=== PATIENT | female | born 1985 | race Caucasian/White ===

== ENCOUNTER 2019-10-24 18:17 | Emergency (ER) | payer SELFPAY ==
[2019-10-24 18:50] VITALS: RESP 20; TEMP 36.3; BMI 23.6
--- NOTE | 2019-10-24 20:16 | W.ED.EXTPRO ---
Documented by User: SHABNAM Melgar 10/25/19 14:01 HPI - Extremity Problem General: Chief complaint: Extremity Injury, Upper Stated complaint: FINGER LAC Time Seen by Provider: 10/24/19 20:16 History of Present Illness: HPI Narrative: Patient is a 33-year-old female who comes into the ED with a laceration on her hand. Patient states she was carrying stuff tripped and fell and her hands got cut on glass. Denies any head trauma or loss of consciousness. Patient states she had her tetanus shot last year. Patient has a superficial linear lack on the thenar region of the left thumb and an abrasion on her right ring finger. Patient was wearing a ring on her right ring finger. Associated symptoms: Deny chest pain, fever(s) or rash Review of Systems Const: Denies: fever, chills or fatigue Eyes: Denies: change in vision or eye discomfort ENMT: Denies: throat pain, painful swallowing, nasal discharge or nasal congestion Card: Denies: chest pain, palpitations, edema, swelling of feet/ankles, shortness of breath on exertion or shortness of breath when lying down Resp: Denies: shortness of breath, productive cough or non-productive cough GI: Denies: abdominal pain, nausea, vomiting, diarrhea, constipation or blood in stool : Denies: flank pain, painful urination or blood in urine Musc: Reports: extremity pain (Right ring finger) and extremity swelling (right ring finger); Denies: neck pain or back pain Skin/Breast: Reports: new lesion; Denies: rash Neuro: Denies: headache, numbness in extremities or weakness in extremities PFS ED PFSH: Social History Smoking and tobacco status: current every day smoker Physical Exam Narrative: EXAM NARRATIVE: Patient is a 33-year-old female that is sitting on the exam chair when entered the room. She is showing no signs of acute distress or pain. She is unable to ring off of her right ring finger. There appears to be abrasion around right ring finger underneath the ring. The right ring finger is mildly swollen. Const: COMMON NORMALS: oriented x3 HENMT: COMMON NORMALS: normocephalic HEAD & SCALP: normocephalic MOUTH: oral and palatal mucosa normal THROAT: posterior oropharynx normal and uvula midline Neck/C-Spine: COMMON NORMALS: supple GENERAL: Yes normal visual inspection Resp: COMMON NORMALS: normal respiratory effort, no retractions, no use of accessory muscles and clear to auscultation bilaterally AUSCULTATION: clear to auscultation bilaterally Cardio: COMMON NORMALS: regular rate, regular rhythm, S1 normal heart sound, S2 normal heart sound, no gallops, no clicks, no murmurs and peripheral pulses 2+ throughout RATE: regular rate RHYTHM: regular rhythm HEART SOUNDS: S1 normal and S2 normal PERIPHERAL PULSES: pulses 2+ throughout GI: COMMON NORMALS: normal to inspection, nondistended, normoactive bowel sounds, soft to palpation, non-tender and no masses PALPATION: Yes soft : COMMON NORMALS: Yes no CVA tenderness BLADDER/KIDNEY EXAM: Yes no CVA tenderness Back/Pelvis: COMMON NORMALS: no CVA tenderness Extremity: NARRATIVE EXTREMITY EXAM: Patient had full range of motion and movement in right hand and left hand. All fingers were able to move normally without any pain. The the only pain she experienced is me touching the abrasion area or the ring rubbing against the abrasion area. RIGHT UPPER EXTREMITY: Yes hand & digits (Right ring finger had an abrasion on it.) Right hand and digits: Yes inspection (Some swelling and an abrasion on the right ring finger.), Yes palpation (Tender over abrasion area), Yes ROM exam (normal), Yes neurovascular exam (intact) and Yes tendon exam (Intact) LEFT UPPER EXTREMITY: Yes hand & digits (Small linear superficial laceration on the thenar region of the left thumb.) Left hand and digits: Yes inspection Neuro: COMMON NORMALS: oriented x3 and moves all extremities Skin: TRAUMA: abrasion (superficial abrasion on right ring finger.) and laceration (superficial lac on left thenar region of thumb-2.5cm) linear, superficial, motor nerve function intact and sensation intact; not contaminated, does not involve subcutaneous tissue and does not involve muscle tissue Procedures Laceration Laceration 1: Site: upper extremity (Thenar region) Side (If applicable): left Size (cm): 2.5 Description: linear Depth: simple, single layer Pre-repair: irrigated extensively (with tap water and then cleaned with CHG) Size (cm): other (Dermabond used to close wound) Nerve Block Nerve Block 1: Local Anesthetic: lidocaine 1% and with epi Amount of anesthesia used (mL): 20 Side: right Nerve Blocks: digital Procedure Successful: Yes Patient Tolerated Procedure: well Complications: none Additional Comments: Patient had a ring on her right ring finger. The cut and abrasion was on her right ring finger and underneath her ring. She was unable to get the ring off due to some of the pain and swelling on the ring finger. Vaseline was used to pull the ring off as well. It was too painful so I decided to do a digital block and cut the ring off. Patient agreed with performing a digital block to help with pain while I was cutting off the ring. I was able to cut the ring off and patient felt no pain during that procedure. Course ED course: Wounds on hand were rinsed with tap water and patient also used warm soapy water to clean hands as well. I then cleaned the wound areas with CHG wipes. The laceration on the left thenar region of the left hand was closed using Dermabond. Vital Signs: Vital signs: Vital Signs Temperature 97.4 F L 10/24/19 18:50 Pulse Rate 89 10/24/19 21:38 Respiratory Rate 17 10/24/19 21:38 Blood Pressure 158/79 10/24/19 21:38 Pulse Oximetry 94 10/24/19 21:38 Discharge Plan Discharge Patient Disposition: Home, Self-Care Clinical Impression: Laceration, Abrasion Condition: Stable Prescriptions: New Bactrim DS 800-160 mg tablet 1 tab PO BID 5 Days Qty: 10 RF: 0 Discharge Orders: Discharge Order (Routine); Ordered 10/24/19 Ordered By: Aguilar Ibarra Referrals: Augusto Mejia FNP [Primary Care Provider] - Discharge Diet: Regular Discharge Activity: Limit activity as instructed Patient Instructions: Laceration (ED), Abrasion (ED) Activity Restrictions/Additional Instructions: Follow-up with PCP in 7 to 10 days for reevaluation. Take full course of antibiotics as prescribed. Take Tylenol or ibuprofen for any fevers or pain. Keep wound area clean and dry. Discharge Date/Time: 10/24/19 21:41 Coding Level of Care Code ED Flat Bed Operator for Chg Fwd Exam Comprehensive Documented by User: Bonita Garnett 10/25/19 17:30 HPI - Extremity Problem General: Chief complaint: Extremity Injury, Upper Stated complaint: FINGER LAC Time Seen by Provider: 10/24/19 20:16 PFSH ED PFSH: Social History Smoking and tobacco status: current every day smoker Course Vital Signs: Vital signs: Vital Signs Temperature 97.4 F L 10/24/19 18:50 Pulse Rate 89 10/24/19 21:38 Respiratory Rate 17 10/24/19 21:38 Blood Pressure 158/79 10/24/19 21:38 Pulse Oximetry 94 10/24/19 21:38 MDM - Extremity (Nontraumatic) MDM Narrative: Medical decision making narrative: This patient was not seen by me nor evaluated by me nor discussed with me by the midlevel provider. I was available in the ER if needed throughout their stay but was not involved or contacted about their care. I am signing this chart per hospital policy ? Dr. Garnett. Discharge Plan Discharge Patient Disposition: Home, Self-Care Clinical Impression: Laceration, Abrasion Condition: Stable Prescriptions: New Bactrim DS 800-160 mg tablet 1 tab PO BID 5 Days Qty: 10 RF: 0 Discharge Orders: Discharge Order (Routine); Ordered 10/24/19 Ordered By: Aguilar Ibarra Referrals: Augusto Mejia FNP [Primary Care Provider] - Discharge Diet: Regular Discharge Activity: Limit activity as instructed Patient Instructions: Laceration (ED), Abrasion (ED) Activity Restrictions/Additional Instructions: Follow-up with PCP in 7 to 10 days for reevaluation. Take full course of antibiotics as prescribed. Take Tylenol or ibuprofen for any fevers or pain. Keep wound area clean and dry. Discharge Date/Time: 10/24/19 21:41 Coding Level of Care Code ED Flat Bed Operator for Adriana Fwd Exam Comprehensive
[2019-10-24 21:38] VITALS: BP 158/79; PULSE 89; RESP 17; O2SAT 94
== END 2019-10-24 21:41 | disposition home or self-care (01) ==
PROVIDERS: Emergency Provider Physician Assistant; Family Provider Nurse Practitioner Family; PCP Nurse Practitioner Family
DX: S61.012A Laceration without foreign body of left thumb without damage to nail, initial encounter (principal); S60.414A Abrasion of right ring finger, initial encounter; F17.200 Nicotine dependence, unspecified, uncomplicated; W01.110A Fall on same level from slipping, tripping and stumbling with subsequent striking against sharp glass, initial encounter
CPT/HCPCS: 12001; 12345; 64450; 99281; 99282

== ENCOUNTER 2020-02-20 18:51 | Emergency (ER) | payer SELFPAY ==
[2020-02-20 19:02] VITALS: BP 120/81; PULSE 82; RESP 18; TEMP 36.7; O2SAT 100; BMI 25.8
--- NOTE | 2020-02-20 19:09 | W.ED.SKABFB ---
HPI - Skin/Abscess/Foreign Bdy General: Chief complaint: Skin/Abscess/Foreign Body Stated complaint: right knee injury Time Seen by Provider: 02/20/20 19:06 History of Present Illness: HPI narrative: Right knee with reddened area last couple 3 days possible scraped knee complaint: abscess/boil Onset (ago): day(s) Tetanus up to date: yes Location: RLE Severity: mild Associated symptoms: Deny chills, fever(s), nausea or vomiting Review of Systems Const: Denies: fever(s), chills or body aches Eyes: Denies: change in vision or blurry vision ENMT: Denies: throat pain or nasal congestion Card: Denies: chest pain or dyspnea on exertion Resp: Denies: dyspnea, productive cough or non-productive cough GI: Denies: abdominal pain, nausea or vomiting Musc: Denies: extremity pain Skin/Breast: Reports: other (Right knee with possible bite scraped area that is red); Denies: rash Neuro: Denies: headache(s) Psych: Denies: anxiety or depression Mark/Lymph: Denies: easy bruising PFSH ED PFSH: Social History Smoking and tobacco status: current every day smoker Female Reproductive History: Date of last menstrual period: 02/10/20 Physical Exam Const: COMMON NORMALS: no acute distress, average body habitus and patient oriented x3 HENMT: COMMON NORMALS: normocephalic HEAD & SCALP: normal to inspection and normocephalic FACE & SINUS: normal facial exam Eye: COMMON NORMALS: conjunctivae normal GENERAL EYE: appearance normal, both eyes and all related structures CONJUNCTIVA: Yes conjunctivae normal Neck/C-Spine: COMMON NORMALS: no JVD Chest: COMMONS NORMALS: normal inspection of the chest Resp: COMMON NORMALS: normal respiratory effort and clear to auscultation bilaterally AUSCULTATION: clear to auscultation bilaterally Cardio: COMMON NORMALS: no JVD, regular rate and regular rhythm RATE: regular rate RHYTHM: regular rhythm GI: COMMON NORMALS: Normal to inspection, nondistended, normoactive bowel sounds present Extremity: COMMON NORMALS: normal to inspection and full ROM Neuro: COMMON NORMALS: patient oriented x3 Skin: OTHER: Right knee has a area central area with slight drainage has mild erythema surrounding about quarter size tender to touch appears to be scratch or bite that is probably infected Course Vital Signs: Vital signs: Vital Signs Temperature 98.0 F 02/20/20 19:02 Pulse Rate 82 02/20/20 19:02 Respiratory Rate 18 02/20/20 19:02 Blood Pressure 120/81 02/20/20 19:02 Pulse Oximetry 100 02/20/20 19:02 Discharge Plan Discharge Patient Disposition: Home, Self-Care Clinical Impression: Cellulitis Qualifiers: Site of cellulitis: extremity Site of cellulitis of extremity: lower extremity Laterality: right Qualified Code(s): L03.115 - Cellulitis of right lower limb Condition: Stable Prescriptions: New Keflex 500 mg capsule 500 mg PO TID 7 Days Qty: 21 RF: 0 Discharge Orders: Discharge Order (Routine); Ordered 02/20/20 Ordered By: Moi Mejia Discharge Diet: Usual diet Discharge Activity: Resume usual activity Patient Instructions: Cellulitis (ED) Activity Restrictions/Additional Instructions: Follow-up with medical provider as directed. Take medications as prescribed. Return to the ER or your medical provider if condition worsens. Please read and understand discharge instructions. If any questions ask please. Coding Level of Care Code ED Control Officer Manager for Adriana Taylor
[2020-02-20] MEDS: cephALEXin 500 mg Capsule PO (19:11)
== END 2020-02-20 19:16 | disposition home or self-care (01) ==
PROVIDERS: Emergency Provider Nurse Practitioner Family
DX: L03.115 Cellulitis of right lower limb (principal); F17.210 Nicotine dependence, cigarettes, uncomplicated
CPT/HCPCS: 12345; 99281; 99283

== ENCOUNTER 2020-02-24 21:14 | Emergency (ER) | payer SELFPAY ==
[2020-02-24] VITALS (9 sets, daily range): BP systolic 89–139; BP diastolic 39–66; PULSE 60–79; RESP 14–18; TEMP 36.7; O2SAT 92–96; BMI 27.3
[2020-02-24] MEDS: sodium chloride 0.9% 1,000 ML 999 ML IV (22:00)
[2020-02-24 22:07] LABS: Basophils % 0.3 %; Eosinophils # 0.5 10^3/uL (0.0-0.8); Eosinophils % 4.4 %; Hematocrit 37.2 % (37.0-47.0); Lymphocytes # 4.6 10^3/uL (0.8-4.8); Lymphocytes % 40.2 %; Mean Corpuscular HGB Conc 29.6 g/dL (30.0-36.0); Mean Corpuscular Hemoglobin 24.1 pg (28.0-34.0); Mean Corpuscular Volume 81.4 fL (81-99); Mean Platelet Volume 9.6 fL (7.4-10.4); Monocytes # 0.8 10^3/uL (0.2-0.9); Monocytes % 6.8 %; Neutrophils # 5.47 10^3/uL (1.8-7.7); Nucleated Red Blood Cells % 0 %; Platelet Count 357 10^3/cmm (130-400); Red Blood Count 4.57 10^6/uL (4.1-5.3); Red Cell Distribution Width 21.1 % (12.1-15.1); White Blood Count 11.4 10^3/uL (4.0-10.0)
[2020-02-24] MEDS: haloperidol inj 5 mg/mL INJ 1 mL IVP (22:15)
[2020-02-24 22:26] LABS: Glucose Urine UA Norm (Normal); Protein Urine Neg (Negative); Specific Gravity, Urine 1.005 (1.005-1.030); Urine Appearance Clear (CLEAR); Urine Color Straw (Yellow); pH Urine 5 (5-7)
[2020-02-24 22:27] LABS: Add Urine Microscopic? YES; Bilirubin Urine Neg (NEGATIVE); Blood Urine 2+ (Negative); HCG Qualitative Urine. Negative (Negative); Ketones Urine Negative (Negative); Leukocyte Esterase Urine Negative (Negative); Nitrate Urine Negative (Negative); Urobilinogen Urine Norm (Negative)
[2020-02-24 22:31] LABS: Amphetamines Screen Urine Negative (Negative); Barbiturates Screen Urine Negative (Negative); Benzodiazepines Screen Urine Negative (Negative); Cocaine Screen Urine Negative (Negative); Opiate Screen Urine Negative (Negative); PCP Screen Urine Negative (Negative); THC Screen Urine Positive (Negative)
[2020-02-24 22:33] LABS: Alcohol Level 287 mg/dL (0-10); Alkaline Phosphatase 118 IU/L (35-105); Anion Gap 14.8 (5-19); Aspartate Amino Transferase 40 U/L (0-32); Blood Urea Nitrogen 13 mg/dL (6-20); Calcium 9.5 mg/dL (8.5-10.5); Carbon Dioxide 22 mmol/L (22-29); Chloride 108 mmol/L (98-107); Creatine Phosphokinase 140 U/L (26-192); Globulin 3.2 g/dL (1.3-4.6); Glomerular Filtration Rate 95.8 mL/min (90-130); Glucose 102 mg/dL (65-115); Magnesium 2.2 mg/dL (1.7-2.3); Osmolality Calculated 288 mOsm/kg (285-295); Potassium 3.8 mmol/L (3.5-5.1); Salicylate 0.5 mg/dL (3-10); Sodium 141 mmol/L (136-145); Total Bilirubin 0.2 mg/dL (0.15-1.2); Total Protein 7.2 g/dL (6.6-8.7)
--- NOTE | 2020-02-24 22:33 | ED_ITS ---
HPI - General Adult General: Chief complaint: General Medical Stated complaint: etoh Time Seen by Provider: 02/24/20 21:24 History of Present Illness: HPI narrative: 34-year-old lady with history of polysubstance abuse. She presents intoxicated to the lobby of the ER. Checked and. She denies any suicidal or homicidal ideation. She does not have any real medical complaints. She does complain of widespread pain. She was seen on 02/20/2020 and diagnosed with cellulitis of her right knee. Her wound does not appear cellulitic today, and therefore must be improved. Onset (ago): hour(s) Location: lower extremity Radiation: non-radiation Pain Consistency: constant Relieving factors: none Associated symptoms: Reports rash and other (Intoxication); Deny chest pain, dyspnea, headache(s), nausea, palpitations or vomiting Review of Systems Const: Denies: fever(s) Eyes: Reports: blurry vision (Intoxicated) ENMT: Denies: swelling of lips/tongue or epistaxis Card: Denies: chest pain, palpitations or irregular heart rhythm Resp: Reports: non-productive cough; Denies: dyspnea, productive cough or wheezing GI: Denies: nausea or vomiting : Denies: dysuria or hematuria Musc: Reports: neck pain and back pain Skin/Breast: Reports: rash; Denies: pruritus or erythema Neuro: Denies: headache(s), dizziness or vertigo Psych: Denies: visual hallucinations or auditory hallucinations PFS ED PFSH: Social History Smoking and tobacco status: current every day smoker Female Reproductive History: Date of last menstrual period: 02/10/20 Physical Exam Const: GENERAL APPEARANCE: disheveled, appears older than stated age and odor of alcohol detected ORIENTATION/CONSCIOUSNESS: Yes oriented to person and Yes oriented to place; not oriented to time HENMT: COMMON NORMALS: normocephalic, external ears normal and Normal external nose present HEAD & SCALP: normocephalic FACE & SINUS: normal facial exam NOSE: Normal external nose present and No nasal discharge present EXTERNAL EAR: Yes external ears normal THROAT: no peritonsillar mass Eye: COMMON NORMALS: Equal, round and reactive pupils present, EOMs intact bilaterally and conjunctivae normal EYELID: eyelids normal CONJUNCTIVA: Yes conjunctivae normal PUPIL: Yes Equal, round and reactive pupils present Neck/C-Spine: GENERAL: No tracheal deviation Chest: COMMONS NORMALS: normal inspection of the chest CHEST: No tenderness Resp: COMMON NORMALS: clear to auscultation bilaterally EFFORT & INSPECTION: No tachypneic, No respiratory distress, No retractions, No uses acc essory muscles and No tracheal deviation AUSCULTATION: clear to auscultation bilaterally, no rhonchi, no wheezes and lung sounds not diminished Cardio: COMMON NORMALS: regular rate and regular rhythm RATE: regular rate RHYTHM: regular rhythm HEART SOUNDS: no murmurs PERIPHERAL PULSES: radial pulses present GI: INSPECTION: No abdominal distension AUSCULTATION: No Hyperactive bowel sounds present and No Hypoactive bowel sounds present PALPATION: No Guarding due to palpation present (GI) and No Rigid due to palpation PERCUSSION: no dullness to percussion and no tympanic to percussion Neuro: SENSORIUM/ORIENTATION: Yes oriented to person, Yes oriented to place and No oriented to time Psych: ATTITUDE: Yes Guarded attititude/behavior present and Yes agitated ACTIVITY/MOTOR BEHAVIOR: Yes fidgeting and Yes restless SPEECH: Yes slurred MOOD & AFFECT: Yes depressed mood THOUGHT PROCESS: confused ATTENTION/CONCENTRATION: Yes attention grossly impaired MEMORY/COGNITION: Yes cognition grossly impaired OTHER: This patient is significantly intoxicated. She answers some questions appropriately, but only simple ones. She denies any suicidal or homicidal ideation. I do not see any acute medical issues. She will be hydrated, labs will be drawn. Skin: COMMON NORMALS: no rashes or lesions noted GENERAL SKIN EXAM: no rashes or lesions noted Course Vital Signs: Vital signs: Vital Signs Temperature 98.0 F 02/24/20 21:20 Pulse Rate 66 02/25/20 03:30 Respiratory Rate 14 02/25/20 03:30 Blood Pressure 105/45 02/25/20 03:30 Pulse Oximetry 97 02/25/20 03:30 MDM - General Adult MDM Narrative: Medical decision making narrative: 34-year-old intoxicated female. Her alcohol is significantly elevated. Her hemoglobin is 11. Other labs are benign. She has been up in the ER. She has eaten. Her vitals have been good. She will be allowed discharge. She will be discharged to the custody of a responsible adult. Lab Data: Labs: Lab Results 02/24/20 02/24/20 02/24/20 Range/Units 21:27 21:27 21:27 WBC (4.0-10.0) 10^3/ uL RBC (4.1-5.3) 10^6/u L Hgb (11.5-15.3) g/dL Hct (37.0-47.0) % MCV (81-99) fL MCH (28.0-34.0) pg MCHC (30.0-36.0) g/dL RDW (12.1-15.1) % Plt Count (130-400) 10^3/c mm MPV (7.4-10.4) fL Neut % (Auto) % Lymph % (Auto) % Bennett % (Auto) % Eos % (Auto) % Baso % (Auto) % Neut # (Auto) (1.8-7.7) 10^3/u L Lymph # (Auto) (0.8-4.8) 10^3/u L Bennett # (Auto) (0.2-0.9) 10^3/u L Eos # (Auto) (0.0-0.8) 10^3/u L Baso # (Auto) (0.0-0.1) 10^3/u L Nucleated RBC % (a uto) % Nucleated RBCs # /100WBC Sodium (136-145) mmol/L Potassium (3.5-5.1) mmol/L Chloride (98-107) mmol/L Carbon Dioxide (22-29) mmol/L Anion Gap (5-19) BUN (6-20) mg/dL Creatinine (0.5-0.9) mg/dL GFR Calculation (90-130) mL/min Glucose (65-115) mg/dL Calculated Osmolal ity (285-295) mOsm/k g Calcium (8.5-10.5) mg/dL Magnesium (1.7-2.3) mg/dL Total Bilirubin (0.15-1.2) mg/dL AST (0-32) U/L ALT (0-33) U/L Alkaline Phosphata se (35-105) IU/L Creatine Kinase (26-192) U/L Total Protein (6.6-8.7) g/dL Albumin (3.5-5.2) g/dL Globulin (1.3-4.6) g/dL HCG, Qual Negative (Negative) Urine Color Straw (Yellow) Urine Appearance Clear (CLEAR) Urine pH 5 (5-7) Ur Specific Gravit y 1.005 (1.005-1.030) Urine Protein Neg (Negative) Urine Glucose (UA) Norm (Normal) Urine Ketones Negative (Negative) Urine Blood 2+ H (Negative) Urine Nitrate Negative (Negative) Urine Bilirubin Neg (NEGATIVE) Urine Urobilinogen Norm (Negative) mg/dL Ur Leukocyte Ene ase Negative (Negative) Urine RBC None (0-2) /hpf Urine WBC None (0-5) /hpf Ur Squamous Epith Cells None (0-5) Amorphous Sediment Not Reportable Urine Bacteria None (NONE) Salicylates (3-10) mg/dL Urine Opiates Scre en Negative (Negative) ng/mL Acetaminophen (10-30) ug/mL Ur Barbiturates Sc reen Negative (Negative) ng/mL Ur Phencyclidine S crn Negative (Negative) ng/mL Ur Amphetamines Sc reen Negative (Negative) ng/mL U Benzodiazepines Scrn Negative (Negative) ng/mL Urine Cocaine Scre en Negative (Negative) ng/mL U Marijuana (THC) Screen Positive H (Negative) ng/mL Ethyl Alcohol (0-10) mg/dL 02/24/20 02/24/20 Range/Units 22:00 22:00 WBC 11.4 H (4.0-10.0) 10^3/ uL RBC 4.57 (4.1-5.3) 10^6/u L Hgb 11.0 L (11.5-15.3) g/dL Hct 37.2 (37.0-47.0) % MCV 81.4 (81-99) fL MCH 24.1 L (28.0-34.0) pg MCHC 29.6 L (30.0-36.0) g/dL RDW 21.1 H (12.1-15.1) % Plt Count 357 (130-400) 10^3/c mm MPV 9.6 (7.4-10.4) fL Neut % (Auto) 48.0 % Lymph % (Auto) 40.2 % Bennett % (Auto) 6.8 % Eos % (Auto) 4.4 % Baso % (Auto) 0.3 % Neut # (Auto) 5.47 (1.8-7.7) 10^3/u L Lymph # (Auto) 4.6 (0.8-4.8) 10^3/u L Bennett # (Auto) 0.8 (0.2-0.9) 10^3/u L Eos # (Auto) 0.5 (0.0-0.8) 10^3/u L Baso # (Auto) 0.0 (0.0-0.1) 10^3/u L Nucleated RBC % (a uto) 0 % Nucleated RBCs # 0.0 /100WBC Sodium 141 (136-145) mmol/L Potassium 3.8 (3.5-5.1) mmol/L Chloride 108 H (98-107) mmol/L Carbon Dioxide 22 (22-29) mmol/L Anion Gap 14.8 (5-19) BUN 13 (6-20) mg/dL Creatinine 0.7 (0.5-0.9) mg/dL GFR Calculation 95.8 (90-130) mL/min Glucose 102 (65-115) mg/dL Calculated Osmolal ity 288 (285-295) mOsm/k g Calcium 9.5 (8.5-10.5) mg/dL Magnesium 2.2 (1.7-2.3) mg/dL Total Bilirubin 0.2 (0.15-1.2) mg/dL AST 40 H (0-32) U/L ALT 36 H (0-33) U/L Alkaline Phosphata se 118 H (35-105) IU/L Creatine Kinase 140 (26-192) U/L Total Protein 7.2 (6.6-8.7) g/dL Albumin 4.0 (3.5-5.2) g/dL Globulin 3.2 (1.3-4.6) g/dL HCG, Qual (Negative) Urine Color (Yellow) Urine Appearance (CLEAR) Urine pH (5-7) Ur Specific Gravit y (1.005-1.030) Urine Protein (Negative) Urine Glucose (UA) (Normal) Urine Ketones (Negative) Urine Blood (Negative) Urine Nitrate (Negative) Urine Bilirubin (NEGATIVE) Urine Urobilinogen (Negative) mg/dL Ur Leukocyte Ene ase (Negative) Urine RBC (0-2) /hpf Urine WBC (0-5) /hpf Ur Squamous Epith Cells (0-5) Amorphous Sediment Urine Bacteria (NONE) Salicylates 0.5 L (3-10) mg/dL Urine Opiates Scre en (Negative) ng/mL Acetaminophen < 5.0 L (10-30) ug/mL Ur Barbiturates Sc reen (Negative) ng/mL Ur Phencyclidine S crn (Negative) ng/mL Ur Amphetamines Sc reen (Negative) ng/mL U Benzodiazepines Scrn (Negative) ng/mL Urine Cocaine Scre en (Negative) ng/mL U Marijuana (THC) Screen (Negative) ng/mL Ethyl Alcohol 287 H (0-10) mg/dL Discharge Plan Discharge Patient Disposition: Home, Self-Care Clinical Impression: Alcohol intoxication Qualifiers: Complication of substance-induced condition: uncomplicated Qualified Code(s): F10.920 - Alcohol use, unspecified with intoxication, uncomplicated Condition: Stable Prescriptions: No Action Keflex 500 mg capsule 500 mg PO TID 7 Days Qty: 21 RF: 0 Discharge Orders: Discharge Order (Routine); Ordered 02/25/20 Ordered By: Juan Francisco Nathan Discharge Diet: Usual diet Discharge Activity: Increase activity as tolerated Patient Instructions: Alcohol Intoxication (ED) Activity Restrictions/Additional Instructions: Abstain from alcohol. Coding Level of Care Code ED Ruffling Hemmer Automatic for Adriana Fwd Exam Comprehensive
--- NOTE | 2020-02-24 22:33 | PC.NURSE ---
packaging clerk called unit requesting assistance retreving pt's from vehicle. Pt observed in trunk area of cab service SUV, initially unresponsive, strong odor of ETOH noted on pt, pupils dilated 6-7mm bilateral, slow response to light. Pt assisted to wheelchair by ED staff and security assistance. Pt unaware of time and place. Does not have memory of events leading to arrival to ED. Pt assisted to hospital bed with ED staff assistance. Vitals obtained, urine sample sent to lab. 22g IV x4 attempt in L brachial. Pt easily agitable, not able to follow commands. Food obtained per vo obtained from Pt resting comfortable with stable vitals after haldol adm
[2020-02-24 22:41] LABS: Acetaminophen < 5.0 ug/mL (10-30)
[2020-02-24 22:55] LABS: Alanine Aminotransferase 36 U/L (0-33)
--- NOTE | 2020-02-24 23:24 | PC.NURSE ---
pt position changed due to hypotension. notified
[2020-02-25] VITALS (7 sets, daily range): BP systolic 79–159; BP diastolic 45–88; PULSE 51–78; RESP 14–18; O2SAT 95–100
[2020-02-25] MEDS: sodium chloride 0.9% 1,000 ML 999 ML IV (01:07)
--- NOTE | 2020-02-25 02:31 | PC.NURSE ---
pt assisted to bedside commode with ED staff assistance. Pt reconnected to monitoring
== END 2020-02-25 06:43 | disposition home or self-care (01) ==
PROVIDERS: Emergency Provider Emergency Medicine
DX: F10.920 Alcohol use, unspecified with intoxication, uncomplicated (principal); F17.210 Nicotine dependence, cigarettes, uncomplicated
CPT/HCPCS: 12345; 36415; 80053; 80306; 80307; 81001; 81003; 81025; 82550; 83735; 85025; 96361; 96374; 96375; 99284; J1630; J3411; J7030